=== PATIENT | male | born 1970 | race Caucasian/White ===

== ENCOUNTER 2019-09-24 13:49 | Outpatient (CLI) | payer BC | END 2019-09-24 13:50 | disposition EMS.NT | LOC: EMS 13:49 | PROVIDERS: ATTEND Surgery | DX: S61.219A Laceration without foreign body of unspecified finger without damage to nail, initial encounter (principal); W45.8XXA Other foreign body or object entering through skin, initial encounter ==

== ENCOUNTER 2019-09-24 14:31 | Emergency (ER) | payer BC ==
[2019-09-24 14:38] VITALS: BP 130/89
--- NOTE | 2019-09-24 14:38 | ED Physician Documentation ---
PD HPI UPPER EXT INJURY - Stated complaint Stated Complaint: R FINGER LAC - History obtained from History obtained from: Patient - History of Present Illness Location: Right, Finger (index finger caught and crushed while he was moving a treadmill down stairs (with help).) Where injury occurred: Home Timing - onset: Today Timing - details: Abrupt onset Worsened by: Moving, Palpating Associated symptoms: Numbness (of index finger). No: Weakness Similar symptoms before: Has not had sx before Review of Systems Constitutional: denies: Fever, Chills Nose: denies: Rhinorrhea / runny nose, Congestion Throat: denies: Sore throat Respiratory: denies: Cough Skin: reports: Abrasion (s) (dorsum hand), Laceration (s) (index finger) Neurologic: reports: Numbness (finger feels numb). denies: Focal weakness PD PAST MEDICAL HISTORY - Past Medical History Cardiovascular: None Respiratory: None Neuro: None Endocrine/Autoimmune: None - Present Medications Home Medications: Ambulatory Orders Medication Instructions Recorded Confirmed No Known Home Medications 09/24/19 09/24/19 - Allergies Allergies/Adverse Reactions: Allergies Allergy/AdvReac Type Severity Reaction Status Date / Time Penicillins Allergy Unknown Verified 09/24/19 14:38 PD ED PE NORMAL - Vitals Vital signs reviewed: Yes - General General: Alert and oriented X 3, No acute distress, Well developed/nourished - Derm Derm: Normal color, Warm and dry - Extremities Extremities: Other (dorsum right hand with small abrasion and local tenderness near mid first MC. No deformity. Index finger with flap lac dorsal radial aspect middle phalanx, which goes to fatty layer but no deep structures involved. Able to flex and ext against resistance though hurts. No FB. ) - Neuro Neuro: No motor deficit, Other (decreased sensation to touch on radial side of finger, but can feel sharp and has tenderness at the laceration. No injurry to account for nerve damage per se, so presume was the pressure/crush component and should be temporary.) Results - Vitals Vitals: Oxygen O2 Source Room air PD MEDICAL DECISION MAKING - ED course Complexity details: reviewed results (considered xray but patient did not feel he needed one and does not have focal bony tenderness nor deformity. ), d/w patient ED course: the flap does not need sutures and he would perefer not. So I trimmed the very edge of the skin that was not viable and laid the flap in place after cleansing. No FB nor deep structures involved. Benzoin and steri strips applied. Departure - Departure Disposition: 01 Home, Self Care Clinical Impression: Finger laceration Qualifiers: Encounter type: initial encounter Finger: index finger Damage to nail status: without damage Foreign body presence: without foreign body Laterality: right Qualified Code(s): S61.210A - Laceration without foreign body of right index finger without damage to nail, initial encounter Condition: Stable Record reviewed to determine appropriate education?: Yes Instructions: ED Laceration Hand Comments: Leave the dressing Steri-Strips clean and dry and allow them to fall off on their own over several days to a week. You can bandage over it to protect them. Increase range of motion of the finger as tolerated as the swelling goes down. I do not see significant injury under the flap of the laceration that would lead to any long-term problem. Tylenol ibuprofen or naproxen as needed for pains. Recheck if signs of infection. Discharge Date/Time: 09/24/19 15:25
[2019-09-24] MEDS ORDERED: HYDROcod/ACETAM 5/325 MG TABLET PO STA (15:15)
[2019-09-24] MEDS ORDERED: IBUPROFEN 600 MG TABLET PO STA (15:15)
[2019-09-24] MEDS ORDERED: ACETAMINOPHEN 325 MG TABLET PO STA (15:15)
== END 2019-09-24 15:25 | disposition home or self-care (01) ==
LOC: ED 14:31
DX: S61.210A Laceration without foreign body of right index finger without damage to nail, initial encounter (principal); S60.511A Abrasion of right hand, initial encounter; W23.0XXA Caught, crushed, jammed, or pinched between moving objects, initial encounter; Y93.89 Activity, other specified; Y92.009 Unspecified place in unspecified non-institutional (private) residence as the place of occurrence of the external cause
CPT/HCPCS: 99282; A9270